=== PATIENT | female | born 1965 | race Caucasian/White ===

== ENCOUNTER 2020-01-09 14:47 | Emergency (ER) | payer MEDICAID, OTHER ==
[2020-01-09] MEDS ORDERED: Albuterol 0.083% 2.5 MG/3 ML Neb Soln NEB ONE (15:27)
[2020-01-09] MEDS ORDERED: LORazepam 0.5 MG Tab PO ONE (15:28)
--- NOTE | 2020-01-09 15:28 | EDM.PDOC ---
ED HPI GENERAL MEDICAL PROBLEM - General Chief Complaint: Respiratory Problem Stated Complaint: SOB Time Seen by Provider: 01/09/20 15:28 Source of Information: Reports: Patient History Limitations: Reports: No Limitations - History of Present Illness INITIAL COMMENTS - FREE TEXT/NARRATIVE: pt has had a dry unproductive cough and feels like she can not catch her breath. She was seen in the ER in the [facility] on December 30. She had a cat scan of the chest--PE study which was neg. She has continued to feel very sob. Onset: Gradual Duration: Other ( this is not improving. ) Location: Reports: Chest Associated Symptoms: Reports: Cough, Shortness of Breath - Related Data Allergies Allergy/AdvReac Type Severity Reaction Status Date / Time No Known Allergies Allergy Verified 01/09/20 15:07 Home Meds: Home Meds NK [No Known Home Meds] 01/09/20 [History] Past Medical History Respiratory History: Reports: Asthma Endocrine/Metabolic History: Reports: Hypothyroidism Social & Family History - Tobacco Use Smoking Status *Q: Current Every Day Smoker Years of Tobacco use: 40 Packs/Tins Daily: 1 ED ROS GENERAL - Review of Systems Review Of Systems: See Below Constitutional: Reports: Malaise, Weakness HEENT: Reports: No Symptoms Respiratory: Reports: Wheezing, Cough Cardiovascular: Reports: No Symptoms Endocrine: Reports: No Symptoms GI/Abdominal: Reports: No Symptoms : Reports: No Symptoms Musculoskeletal: Reports: No Symptoms Skin: Reports: No Symptoms Neurological: Reports: No Symptoms Psychiatric: Reports: Anxiety ED EXAM, GENERAL - Physical Exam Exam: See Below Free Text/Narrative:: pt arrived with a history of a cough and sob since December 30. She was seen in ER at that time she was given a neb and sent home with predisone and a inhaler. She is out of the predisone at this time. She continues to feel like she is sob. Exam Limited By: No Limitations General Appearance: Alert, Anxious, Mild Distress Ears: Normal TMs Nose: Normal Inspection Throat/Mouth: Normal Inspection Head: Atraumatic Neck: Normal Inspection Respiratory/Chest: Decreased Breath Sounds, Wheezing Cardiovascular: Regular Rate, Rhythm GI/Abdominal: Soft, Non-Tender (Female) Exam: Deferred Rectal (Female) Exam: Deferred Back Exam: Normal Inspection Extremities: Normal Inspection Neurological: Alert, Oriented, Normal Cognition Psychiatric: Anxious Course - Vital Signs Last Recorded V/S: Last Vital Signs Temp 36.0 C L 01/09/20 15:16 Pulse 100 01/09/20 17:07 Resp 18 01/09/20 15:16 BP 135/94 H 01/09/20 17:07 Pulse Ox 97 01/09/20 17:07 - Orders/Labs/Meds Orders: Active Orders 24 hr Category Date Time Status RT Aerosol Therapy [RC] ASDIRECTED Care 01/09/20 15:27 Active RT Aerosol Therapy [RC] ASDIRECTED Care 01/09/20 16:58 Active Chest 2V [CR] Stat Exams 01/09/20 15:23 Taken CULTURE URINE [RM] Stat Lab 01/09/20 17:53 Received Sodium Chloride 0.9% [Normal Saline] 1,000 ml Med 01/09/20 16:45 Active IV ASDIRECTED Medication Orders Sodium Chloride (Normal Saline) 1,000 mls @ 999 mls/hr IV ASDIRECTED ROXANNA Last Admin: 01/09/20 17:12 Dose: 999 mls/hr Labs: Laboratory Tests 01/09/20 01/09/20 01/09/20 Range/Units 15:30 15:31 15:31 WBC 8.5 (4.5-11.0) K/uL RBC 3.93 (3.30-5.50) M/uL Hgb 11.9 L (12.0-15.0) g/dL Hct 36.6 (36.0-48.0) % MCV 93 (80-98) fL MCH 30 (27-31) pg MCHC 33 (32-36) % Plt Count 304 (150-400) K/uL Neut % (Auto) 59 (36-66) % Lymph % (Auto) 28 (24-44) % [place] % (Auto) 10 H (2-6) % Eos % (Auto) 2 (2-4) % Baso % (Auto) 1 (0-1) % Sodium 137 L (140-148) mmol/L Potassium 4.4 (3.6-5.2) mmol/L Chloride 102 (100-108) mmol/L Carbon Dioxide 22 (21-32) mmol/L Anion Gap 17.4 H (5.0-14.0) mmol/L BUN 19 H (7-18) mg/dL Creatinine 1.5 H (0.6-1.0) mg/dL Est Cr Clr Drug Dosing 36.59 mL/min Estimated GFR (MDRD) 36 L (>60) Glucose 100 (74-106) mg/dL Calcium 8.4 L (8.5-10.1) mg/dL Total Bilirubin 0.9 (0.2-1.0) mg/dL AST 60 H (15-37) U/L ALT 144 H (12-78) U/L Alkaline Phosphatase 114 (46-116) U/L NT-Pro-B Natriuret Pep 03154 H (5-125) pg/mL Total Protein 6.9 (6.4-8.2) g/dL Albumin 3.5 (3.4-5.0) g/dL Globulin 3.4 (2.3-3.5) g/dL Albumin/Globulin Ratio 1.0 L (1.2-2.2) Urine Color (YELLOW) Urine Appearance (CLEAR) Urine pH (5.0-8.0) Ur Specific [place] (1.008-1.030) Urine Protein (NEGATIVE) mg/dL Urine Glucose (UA) (NEGATIVE) mg/dL Urine Ketones (NEGATIVE) mg/dL Urine Occult Blood (NEGATIVE) Urine Nitrite (NEGATIVE) Urine Bilirubin (NEGATIVE) Urine Urobilinogen (0.2-1.0) EU/dL Ur Leukocyte Esterase (NEGATIVE) Urine RBC (0-5) Urine WBC (0-5) Ur Epithelial Cells Amorphous Sediment Urine Bacteria Urine Mucus 01/09/20 Range/Units 16:31 WBC (4.5-11.0) K/uL RBC (3.30-5.50) M/uL Hgb (12.0-15.0) g/dL Hct (36.0-48.0) % MCV (80-98) fL MCH (27-31) pg MCHC (32-36) % Plt Count (150-400) K/uL Neut % (Auto) (36-66) % Lymph % (Auto) (24-44) % [place] % (Auto) (2-6) % Eos % (Auto) (2-4) % Baso % (Auto) (0-1) % Sodium (140-148) mmol/L Potassium (3.6-5.2) mmol/L Chloride (100-108) mmol/L Carbon Dioxide (21-32) mmol/L Anion Gap (5.0-14.0) mmol/L BUN (7-18) mg/dL Creatinine (0.6-1.0) mg/dL Est Cr Clr Drug Dosing mL/min Estimated GFR (MDRD) (>60) Glucose (74-106) mg/dL Calcium (8.5-10.1) mg/dL Total Bilirubin (0.2-1.0) mg/dL AST (15-37) U/L ALT (12-78) U/L Alkaline Phosphatase (46-116) U/L NT-Pro-B Natriuret Pep (5-125) pg/mL Total Protein (6.4-8.2) g/dL Albumin (3.4-5.0) g/dL Globulin (2.3-3.5) g/dL Albumin/Globulin Ratio (1.2-2.2) Urine Color [place] A (YELLOW) Urine Appearance Clear (CLEAR) Urine pH 5.5 (5.0-8.0) Ur Specific [place] >= 1.030 (1.008-1.030) Urine Protein 30 H (NEGATIVE) mg/dL Urine Glucose (UA) Negative (NEGATIVE) mg/dL Urine Ketones Negative (NEGATIVE) mg/dL Urine Occult Blood Trace-intact H (NEGATIVE) Urine Nitrite Negative (NEGATIVE) Urine Bilirubin Small H (NEGATIVE) Urine Urobilinogen 1.0 (0.2-1.0) EU/dL Ur Leukocyte Esterase Trace H (NEGATIVE) Urine RBC 5-10 H (0-5) Urine WBC 5-10 H (0-5) Ur Epithelial Cells Many Amorphous Sediment Few Urine Bacteria Few Urine Mucus Rare Meds: Medications Generic Name Dose Route Start Last Admin Trade Name Freq PRN Reason Stop Dose Admin Sodium Chloride 1,000 mls @ 999 mls/hr 01/09/20 16:45 01/09/20 17:12 Normal Saline IV 999 mls/hr ASDIRECTED ROXANNA Administration Discontinued Medications Generic Name Dose Route Start Last Admin Trade Name Freq PRN Reason Stop Dose Admin Albuterol 2.5 mg 01/09/20 15:27 01/09/20 15:56 Proventil Neb Soln NEB 01/09/20 15:28 2.5 mg ONETIME ONE Administration Albuterol/Ipratropium 3 ml 01/09/20 16:57 01/09/20 17:12 Duoneb 3.0-0.5 Mg/3 Ml NEB 01/09/20 16:58 3 ml ONETIME ONE Administration Furosemide 60 mg 01/09/20 18:04 01/09/20 18:11 Lasix IVPUSH 01/09/20 18:05 60 mg ONETIME ONE Administration Lorazepam 0.5 mg 01/09/20 15:28 01/09/20 15:56 Ativan PO 01/09/20 15:29 0.5 mg ONETIME ONE Administration Methylprednisolone Sodium Succinate 125 mg 01/09/20 16:37 01/09/20 17:12 Solu-Medrol IVPUSH 01/09/20 16:38 125 mg ONETIME ONE Administration - Re-Assessments/Exams Free Text/Narrative Re-Assessment/Exam: 01/09/20 17:53 pt continues to want to breath quite shallow. She had a chest xray which looked good. Her wbc was normal . she does have a elevated bnp. she was given lasix 60 mg iv. 01/09/20 18:06 Departure - Departure Time of Disposition: 18:08 Disposition: Home, Self-Care 01 Condition: Fair Clinical Impression: Fluid overload, COPD suggested by initial evaluation - Discharge Information Instructions: Chronic Obstructive Pulmonary Disease Exacerbation, [id number] Referrals: PCP,None [Primary Care Provider] - Forms: ED Department Discharge Care Plan Goals: nebulizer --do neb treatment tid with albuterol premixed, predisone 10mg daily for 5 days, lasix 20 mg daily see regular provider for follow up and be sure to follow up on the chest nodule found on the cat scan, high k foods. encourage deep breathing. send a copy of her labs home with the pt. Sepsis Event Note - Evaluation Sepsis Screening Result: No Definite Risk - Focused Exam Vital Signs: Vital Signs Temp Pulse Resp BP Pulse Ox 01/09/20 17:07 100 135/94 H 97 01/09/20 16:55 107 H 120/80 100 01/09/20 15:36 102 H 120/90 96 01/09/20 15:16 36.0 C L 111 H 18 123/73 100 01/09/20 15:00 36.0 C L 111 H 18 123/73 100 Date Exam was Performed: 05/03/20 Time Exam was Performed: 18:16 - My Orders Last 24 Hours: My Active Orders 01/09/20 15:23 Chest 2V [CR] Stat 01/09/20 15:27 RT Aerosol Therapy [RC] ASDIRECTED 01/09/20 16:45 Sodium Chloride 0.9% [Normal Saline] 1,000 ml IV ASDIRECTED 01/09/20 16:58 RT Aerosol Therapy [RC] ASDIRECTED 01/09/20 17:53 CULTURE URINE [RM] Stat - Assessment/Plan Last 24 Hours: My Active Orders 01/09/20 15:23 Chest 2V [CR] Stat 01/09/20 15:27 RT Aerosol Therapy [RC] ASDIRECTED 01/09/20 16:45 Sodium Chloride 0.9% [Normal Saline] 1,000 ml IV ASDIRECTED 01/09/20 16:58 RT Aerosol Therapy [RC] ASDIRECTED 01/09/20 17:53 CULTURE URINE [RM] Stat
[2020-01-09] MEDS ORDERED: methylPREDNISolone Sodium Succinate 125 MG/2 ML SDV IVPUSH ONE (16:37)
[2020-01-09] MEDS ORDERED: Sodium Chloride 0.9% 1,000 ML IV SCH (16:45)
[2020-01-09] MEDS ORDERED: Albuterol/Ipratropium 3.0-0.5 MG/3 ML Neb Soln NEB ONE (16:57)
[2020-01-09 17:08] VITALS: BP 135/94; PULSE 100
[2020-01-09] MEDS ORDERED: Furosemide 40 MG/4 ML VIAL IVPUSH ONE (18:04)
--- NOTE | 2020-01-10 10:30 | CR ---
CHEST: 2 view CLINICAL HISTORY:SOB COMPARISON:None FINDINGS: The heart is enlarged. Pulmonary vascularity appears normal. There is some mild interstitial prominence which may be chronic. There are atherosclerotic changes in the aorta. Impression: Cardiomegaly Mild interstitial prominence may be chronic. Mild pneumonitis or pulmonary edema is not excluded..
== END 2020-01-09 18:35 | disposition home or self-care (01) ==
LOC: JP.ED 14:47
DX: J44.9 Chronic obstructive pulmonary disease, unspecified (principal); E87.70 Fluid overload, unspecified; F17.210 Nicotine dependence, cigarettes, uncomplicated
CPT/HCPCS: 36415; 71046; 80053; 81001; 83880; 85025; 87086; 94640; 96361; 96374; 96375; 99284; A9270; J1940; J2930; J7030; J7620-GY

== ENCOUNTER 2020-01-23 15:49 | Emergency (ER) | payer MEDICAID ==
--- NOTE | 2020-01-23 16:13 | EDM.PDOC ---
ED HPI GENERAL MEDICAL PROBLEM - General Chief Complaint: General Stated Complaint: COPD,RESTLESS LEG SYNDROME Time Seen by Provider: 01/23/20 16:15 Source of Information: Reports: Patient History Limitations: Reports: No Limitations, Respiratory Distress - History of Present Illness Onset: Gradual Duration: Getting Worse Location: Reports: Lower Extremity, Left, Lower Extremity, Right (She has restless legs and cannot keep them from moving at night) Quality: Reports: Other (Left lower extremity is restless and the patient has not had any sleep last night because of it) Bilateral Leg Pain Score (Numeric/FACES): 10 - Related Data Allergies Allergy/AdvReac Type Severity Reaction Status Date / Time Penicillins Allergy Rash Verified 01/23/20 16:03 Home Meds: Home Meds Albuterol [Proventil Neb Soln] 0.63 mg NEB Q2H PRN 01/23/20 [History] Furosemide [Lasix] 20 mg PO DAILY 01/23/20 [History] Tiotropium [Spiriva HandiHaler] 1 dose IH QID 01/23/20 [History] predniSONE 1 tab PO ASDIRECTED 01/23/20 [History] Past Medical History Respiratory History: Reports: Asthma, COPD Endocrine/Metabolic History: Reports: Hypothyroidism ED ROS GENERAL - Review of Systems Review Of Systems: See Below Respiratory: Reports: Shortness of Breath, Cough ED EXAM, GENERAL - Physical Exam Exam: See Below Exam Limited By: No Limitations General Appearance: Alert EKG INTERPRETATION EKG Date: 01/23/20 Time: 16:30 Rhythm: NSR Rate (Beats/Min): 99 [place]: Normal P-Wave: Present QRS: Normal ST-T: Normal Course - Vital Signs Text/Narrative:: Differential diagnosis is COPD exacerbation, CO2 retention, electrolyte abnormality, pneumonia, or edema. Initially I was thinking that I would order a nebulization treatment for the patient but she is tremulous and tachycardic and nursing staff informs me that she has been "sucking on her inhalers" very frequently and the patient is not even aware of how often she is supposed to be using them. Arterial blood gases consistent with respiratory alkalosis and hyperventilation, rather than CO2 retention from chronic lung disease. Patient 's chest x-ray is completely clear and she has a normal white blood cell count. I do not believe that her feelings of shortness of breath and tachycardia are due to any sort of lung or heart disease but more likely due to her methamphetamine abuse and anxiety. I have reviewed all of the above with the patient Last Recorded V/S: Last Vital Signs Temp 36.0 C L 01/23/20 16:07 Pulse 102 H 01/23/20 17:22 Resp 20 01/23/20 17:22 BP 129/96 H 01/23/20 17:22 Pulse Ox 96 01/23/20 17:22 - Orders/Labs/Meds Orders: Active Orders 24 hr Category Date Time Status EKG Documentation Completion [RC] ASDIRECTED Care 01/23/20 16:25 Active EKG 12 Lead [EK] Urgent Ther 01/23/20 16:25 Ordered Labs: Laboratory Tests 01/23/20 01/23/20 01/23/20 Range/Units 16:44 16:44 16:44 WBC 9.3 (4.5-11.0) K/uL RBC 4.02 (3.30-5.50) M/uL Hgb 12.0 (12.0-15.0) g/dL Hct 38.4 (36.0-48.0) % MCV 96 (80-98) fL MCH 30 (27-31) pg MCHC 31 L (32-36) % Plt Count 288 (150-400) K/uL PT 12.0 (9.5-12.0) sec INR 1.12 (0.80-1.20) Puncture Site ABG pH (7.350-7.450) ABG pCO2 (35.0-42.0) mmHg ABG pO2 (75.0-100.0) mmHg ABG HCO3 (22.0-26.0) mmol/L ABG Total CO2 (21.0-25.0) mmol/L ABG O2 Saturation (95.0-98.0) % ABG O2 Content (15.0-23.0) %vol ABG Base Excess mm/L ABG Hemoglobin (12.0-16.0) g/dL ABG Oxyhemoglobin % ABG Carboxyhemoglobin (0.0-1.6) % ABG Methemoglobin % [place] Test O2 Delivery Device Sodium (140-148) mmol/L Potassium (3.6-5.2) mmol/L Chloride (100-108) mmol/L Carbon Dioxide (21-32) mmol/L Anion Gap (5.0-14.0) mmol/L BUN (7-18) mg/dL Creatinine (0.6-1.0) mg/dL Est Cr Clr Drug Dosing mL/min Estimated GFR (MDRD) (>60) Glucose (74-106) mg/dL Lactic Acid (0.4-2.0) mmol/L Calcium (8.5-10.1) mg/dL Total Bilirubin (0.2-1.0) mg/dL AST (15-37) U/L ALT (12-78) U/L Alkaline Phosphatase (46-116) U/L Troponin I < 0.017 (0.000-0.056) ng/mL NT-Pro-B Natriuret Pep (5-125) pg/mL Total Protein (6.4-8.2) g/dL Albumin (3.4-5.0) g/dL Globulin (2.3-3.5) g/dL Albumin/Globulin Ratio (1.2-2.2) Urine Color (YELLOW) Urine Appearance (CLEAR) Urine pH (5.0-8.0) Ur Specific [place] (1.008-1.030) Urine Protein (NEGATIVE) mg/dL Urine Glucose (UA) (NEGATIVE) mg/dL Urine Ketones (NEGATIVE) mg/dL Urine Occult Blood (NEGATIVE) Urine Nitrite (NEGATIVE) Urine Bilirubin (NEGATIVE) Urine Urobilinogen (0.2-1.0) EU/dL Ur Leukocyte Esterase (NEGATIVE) Urine RBC (0-5) Urine WBC (0-5) Ur Epithelial Cells Amorphous Sediment Urine Bacteria Urine Mucus Urine Opiates Screen (NEGATIVE) Ur Oxycodone Screen (NEGATIVE) Urine Methadone Screen (NEGATIVE) Ur Propoxyphene Screen (NEGATIVE) Ur Barbiturates Screen (NEGATIVE) Ur Tricyclics Screen (NEGATIVE) Ur Phencyclidine Scrn (NEGATIVE) Ur Amphetamine Screen (NEGATIVE) U Methamphetamines Scrn (NEGATIVE) Urine MDMA Screen (NEGATIVE) U Benzodiazepines Scrn (NEGATIVE) U Cocaine Metab Screen (NEGATIVE) U Marijuana (THC) Screen (NEGATIVE) 01/23/20 01/23/20 01/23/20 Range/Units 16:44 16:44 16:44 WBC (4.5-11.0) K/uL RBC (3.30-5.50) M/uL Hgb (12.0-15.0) g/dL Hct (36.0-48.0) % MCV (80-98) fL MCH (27-31) pg MCHC (32-36) % Plt Count (150-400) K/uL PT (9.5-12.0) sec INR (0.80-1.20) Puncture Site Lt radial ABG pH 7.444 (7.350-7.450) ABG pCO2 26.7 L (35.0-42.0) mmHg ABG pO2 86.8 (75.0-100.0) mmHg ABG HCO3 18.0 L (22.0-26.0) mmol/L ABG Total CO2 16.1 L (21.0-25.0) mmol/L ABG O2 Saturation 96.3 (95.0-98.0) % ABG O2 Content 16.4 (15.0-23.0) %vol ABG Base Excess -4.4 mm/L ABG Hemoglobin 12.3 (12.0-16.0) g/dL ABG Oxyhemoglobin 94.5 % ABG Carboxyhemoglobin 1.2 (0.0-1.6) % ABG Methemoglobin 0.7 % [place] Test Passed O2 Delivery Device Room air Sodium 131 L (140-148) mmol/L Potassium 3.3 L (3.6-5.2) mmol/L Chloride 99 L (100-108) mmol/L Carbon Dioxide 19 L (21-32) mmol/L Anion Gap 16.3 H (5.0-14.0) mmol/L BUN 16 (7-18) mg/dL Creatinine 1.3 H (0.6-1.0) mg/dL Est Cr Clr Drug Dosing 42.22 mL/min Estimated GFR (MDRD) 43 L (>60) Glucose 123 H (74-106) mg/dL Lactic Acid 3.6 H (0.4-2.0) mmol/L Calcium 8.7 (8.5-10.1) mg/dL Total Bilirubin 0.5 (0.2-1.0) mg/dL AST 39 H (15-37) U/L ALT 97 H (12-78) U/L Alkaline Phosphatase 123 H (46-116) U/L Troponin I (0.000-0.056) ng/mL NT-Pro-B Natriuret Pep 6687 H (5-125) pg/mL Total Protein 6.7 (6.4-8.2) g/dL Albumin 3.7 (3.4-5.0) g/dL Globulin 3.0 (2.3-3.5) g/dL Albumin/Globulin Ratio 1.2 (1.2-2.2) Urine Color (YELLOW) Urine Appearance (CLEAR) Urine pH (5.0-8.0) Ur Specific [place] (1.008-1.030) Urine Protein (NEGATIVE) mg/dL Urine Glucose (UA) (NEGATIVE) mg/dL Urine Ketones (NEGATIVE) mg/dL Urine Occult Blood (NEGATIVE) Urine Nitrite (NEGATIVE) Urine Bilirubin (NEGATIVE) Urine Urobilinogen (0.2-1.0) EU/dL Ur Leukocyte Esterase (NEGATIVE) Urine RBC (0-5) Urine WBC (0-5) Ur Epithelial Cells Amorphous Sediment Urine Bacteria Urine Mucus Urine Opiates Screen (NEGATIVE) Ur Oxycodone Screen (NEGATIVE) Urine Methadone Screen (NEGATIVE) Ur Propoxyphene Screen (NEGATIVE) Ur Barbiturates Screen (NEGATIVE) Ur Tricyclics Screen (NEGATIVE) Ur Phencyclidine Scrn (NEGATIVE) Ur Amphetamine Screen (NEGATIVE) U Methamphetamines Scrn (NEGATIVE) Urine MDMA Screen (NEGATIVE) U Benzodiazepines Scrn (NEGATIVE) U Cocaine Metab Screen (NEGATIVE) U Marijuana (THC) Screen (NEGATIVE) 01/23/20 01/23/20 Range/Units 16:53 16:53 WBC (4.5-11.0) K/uL RBC (3.30-5.50) M/uL Hgb (12.0-15.0) g/dL Hct (36.0-48.0) % MCV (80-98) fL MCH (27-31) pg MCHC (32-36) % Plt Count (150-400) K/uL PT (9.5-12.0) sec INR (0.80-1.20) Puncture Site ABG pH (7.350-7.450) ABG pCO2 (35.0-42.0) mmHg ABG pO2 (75.0-100.0) mmHg ABG HCO3 (22.0-26.0) mmol/L ABG Total CO2 (21.0-25.0) mmol/L ABG O2 Saturation (95.0-98.0) % ABG O2 Content (15.0-23.0) %vol ABG Base Excess mm/L ABG Hemoglobin (12.0-16.0) g/dL ABG Oxyhemoglobin % ABG Carboxyhemoglobin (0.0-1.6) % ABG Methemoglobin % [place] Test O2 Delivery Device Sodium (140-148) mmol/L Potassium (3.6-5.2) mmol/L Chloride (100-108) mmol/L Carbon Dioxide (21-32) mmol/L Anion Gap (5.0-14.0) mmol/L BUN (7-18) mg/dL Creatinine (0.6-1.0) mg/dL Est Cr Clr Drug Dosing mL/min Estimated GFR (MDRD) (>60) Glucose (74-106) mg/dL Lactic Acid (0.4-2.0) mmol/L Calcium (8.5-10.1) mg/dL Total Bilirubin (0.2-1.0) mg/dL AST (15-37) U/L ALT (12-78) U/L Alkaline Phosphatase (46-116) U/L Troponin I (0.000-0.056) ng/mL NT-Pro-B Natriuret Pep (5-125) pg/mL Total Protein (6.4-8.2) g/dL Albumin (3.4-5.0) g/dL Globulin (2.3-3.5) g/dL Albumin/Globulin Ratio (1.2-2.2) Urine Color [place] A (YELLOW) Urine Appearance Clear (CLEAR) Urine pH 5.5 (5.0-8.0) Ur Specific [place] >= 1.030 (1.008-1.030) Urine Protein 30 H (NEGATIVE) mg/dL Urine Glucose (UA) Negative (NEGATIVE) mg/dL Urine Ketones Negative (NEGATIVE) mg/dL Urine Occult Blood Negative (NEGATIVE) Urine Nitrite Negative (NEGATIVE) Urine Bilirubin Negative (NEGATIVE) Urine Urobilinogen 0.2 (0.2-1.0) EU/dL Ur Leukocyte Esterase Negative (NEGATIVE) Urine RBC 0-5 (0-5) Urine WBC 5-10 H (0-5) Ur Epithelial Cells Many Amorphous Sediment Few Urine Bacteria Rare Urine Mucus Few Urine Opiates Screen Negative (NEGATIVE) Ur Oxycodone Screen Negative (NEGATIVE) Urine Methadone Screen Negative (NEGATIVE) Ur Propoxyphene Screen Negative (NEGATIVE) Ur Barbiturates Screen Negative (NEGATIVE) Ur Tricyclics Screen Presumptive positive H (NEGATIVE) Ur Phencyclidine Scrn Negative (NEGATIVE) Ur Amphetamine Screen Presumptive positive H (NEGATIVE) U Methamphetamines Scrn Presumptive positive H (NEGATIVE) Urine MDMA Screen Negative (NEGATIVE) U Benzodiazepines Scrn Negative (NEGATIVE) U Cocaine Metab Screen Negative (NEGATIVE) U Marijuana (THC) Screen Negative (NEGATIVE) Meds: Medications Discontinued Medications Generic Name Dose Route Start Last Admin Trade Name Freq PRN Reason Stop Dose Admin Lorazepam 1 mg 01/23/20 16:27 01/23/20 16:30 Ativan PO 01/23/20 16:28 1 mg ONETIME ONE Administration Departure - Departure Time of Disposition: 17:29 Disposition: Home, Self-Care 01 Clinical Impression: Methamphetamine abuse, Hyperventilation syndrome - Discharge Information Instructions: Hyperventilation, Stimulant Use Disorder-Methamphetamines Referrals: PCP,None [Primary Care Provider] - Forms: ED Department Discharge Additional Instructions: Utilize your albuterol inhaler only 4 times a day. Utilize your Spiriva inhaler only twice a day. Stop using methamphetamine Sepsis Event Note - Evaluation Sepsis Screening Result: No Definite Risk - Focused Exam Vital Signs: Vital Signs Temp Pulse Resp BP Pulse Ox 01/23/20 17:22 102 H 20 129/96 H 96 01/23/20 16:50 103 H 110/68 97 01/23/20 16:07 36.0 C L 103 H 22 H 139/94 H 97 01/23/20 16:00 36.0 C L 103 H 22 H 139/94 H 97 Date Exam was Performed: 01/23/20 Time Exam was Performed: 17:42 - My Orders Last 24 Hours: My Active Orders 01/23/20 16:25 EKG Documentation Completion [RC] ASDIRECTED EKG 12 Lead [EK] Urgent - Assessment/Plan Last 24 Hours: My Active Orders 01/23/20 16:25 EKG Documentation Completion [RC] ASDIRECTED EKG 12 Lead [EK] Urgent
[2020-01-23] MEDS ORDERED: LORazepam 1 MG Tab PO ONE (16:27)
--- NOTE | 2020-01-23 17:14 | CRLCR ---
INDICATION: Shortness of breath. COMPARISON: Chest radiograph 01/09/2020. No report is available for review. TECHNIQUE: 2 view chest. FINDINGS: No focal consolidation, pleural effusion, or pneumothorax. Stable cardiomegaly. Normal pulmonary vascularity. IMPRESSION: No acute cardiopulmonary findings. Dictated by Kathrin Espana MD @ Jan 23 2020 5:11PM Signed by Dr. Kathrin Espana @ Jan 23 2020 5:13PM
[2020-01-23 17:37] VITALS: BP 129/96; PULSE 102
== END 2020-01-23 17:49 | disposition home or self-care (01) ==
LOC: JP.ED 15:49
DX: F45.8 Other somatoform disorders (principal); F15.10 Other stimulant abuse, uncomplicated; J44.9 Chronic obstructive pulmonary disease, unspecified; Z88.0 Allergy status to penicillin
CPT/HCPCS: 36415; 36600; 71046; 80053; 80305; 81001; 82803; 83605; 83880; 84484; 85027; 85610; 93005; 99283; 99285; A9270; 93010

== ENCOUNTER 2022-09-26 06:34 | Emergency (ER) | payer MEDICARE, MEDICAID ==
[2022-09-26 06:46] VITALS: BP 140/85; PULSE 74
[2022-09-26] MEDS ORDERED: Clindamycin HCl 150 MG Cap PO ONE (07:21)
[2022-09-26] MEDS ORDERED: Acetaminophen 500 MG Tab PO ONE (07:22)
== END 2022-09-26 07:39 | disposition home or self-care (01) ==
LOC: JP.ED 06:34
DX: K04.7 Periapical abscess without sinus (principal); K02.9 Dental caries, unspecified; I50.22 Chronic systolic (congestive) heart failure; R73.03 Prediabetes; J44.9 Chronic obstructive pulmonary disease, unspecified; I25.2 Old myocardial infarction; E03.9 Hypothyroidism, unspecified; F17.210 Nicotine dependence, cigarettes, uncomplicated; Z88.0 Allergy status to penicillin; Z79.899 Other long term (current) drug therapy
CPT/HCPCS: 99282; A9270-GY

== ENCOUNTER 2022-09-26 16:36 | Emergency (ER) | payer MEDICARE, MEDICAID ==
[2022-09-26 16:49] VITALS: BP 146/90; PULSE 83
[2022-09-26] MEDS ORDERED: oxyCODONE 5 MG Tab PO ONE (16:55)
[2022-09-26] MEDS ORDERED: Ondansetron 4 MG Tab.DIS PO ONE (17:00)
== END 2022-09-26 17:40 | disposition home or self-care (01) ==
LOC: JP.ED 16:36
DX: K04.7 Periapical abscess without sinus (principal); K02.9 Dental caries, unspecified; J44.9 Chronic obstructive pulmonary disease, unspecified; I25.2 Old myocardial infarction; E03.9 Hypothyroidism, unspecified; Z88.0 Allergy status to penicillin; Z79.899 Other long term (current) drug therapy
CPT/HCPCS: 99282; 99285; A9270-GY; Q0162